=== PATIENT | female | born 1940 | race Caucasian/White ===

== ENCOUNTER 2018-12-19 12:00 | Inpatient (IN) | payer MEDICARE, MEDICAID ==
[~2018-12-19] VITALS: Wt 44.0 kg
[2018-12-19] MEDS ORDERED: CALCIUM 600MG+D1 TAB PO (12:21)
[2018-12-19] MEDS ORDERED: COMPLETE MULTI1 TAB PO (12:22)
[2018-12-19] MEDS ORDERED: FLEXERIL 1010 MG/TAB PO (12:23)
[2018-12-19] MEDS ORDERED: ARICEPT ODT5 MG PO (12:24)
[2018-12-19] MEDS ORDERED: FERROUS GL325 MG/TAB PO (12:25)
[2018-12-19] MEDS ORDERED: FOLIC ACID 11 MG/TA1 PO (12:26)
[2018-12-19 12:27] VITALS: BP 107/66; PULSE 71; TEMP 97.1
[2018-12-19] MEDS ORDERED: IPRATROPIUM BROM3 M1 IH (12:27)
[2018-12-19] MEDS ORDERED: LAMICTAL200 MG PO (12:28)
[2018-12-19] MEDS ORDERED: LEXAPRO20 MG PO (12:28)
[2018-12-19] MEDS ORDERED: CLARITIN 1010 MG/TAB PO (12:30)
[2018-12-19] MEDS ORDERED: SINEMET 25/101 UDTAB PO (12:32)
[2018-12-19] MEDS ORDERED: TINACTIN11 TP (12:34)
[2018-12-19] MEDS ORDERED: MAXZIDE-25MG TA1 TAB PO (12:35)
[2018-12-19] MEDS ORDERED: VICKS VAPORUB 41 OIN TOP (12:35)
[2018-12-19] MEDS ORDERED: B-12 500 MCG PO (12:36)
[2018-12-19] MEDS ORDERED: VTAMINC250TA PO (12:37)
[2018-12-19 15:25] LABS: ALANINE AMINOTRANSFERASE < 6 U/L (9-52); ALBUMIN 3.4 gm/dL (3.5-5.0); ALKALINE PHOSPHATASE 101 U/L (50-136); ANION GAP 7 mmol/L (7-16); AST,SGOT 42 U/L (15-37); BILIRUBIN,TOTAL 2.5 mg/dL (0.0-1.0); BLOOD UREA NITROGEN 37 mg/dL (7-17); CALCIUM 8.9 mg/dL (8.4-10.2); CARBON DIOXIDE 30 mmol/L (22-30); CHLORIDE 94 mmol/L (98-107); CREATININE, serum 1.11 mg/dL (0.52-1.25); GLUCOSE 96 mg/dL (74-106); POTASSIUM 3.5 mmol/L (3.4-5.0); SODIUM 131 mmol/L (137-145); TOTAL PROTEIN 5.7 gm/dL (6.4-8.2)
[2018-12-19 15:38] LABS: PROTHROMBIN TIME 11.9 SECONDS (9.7-12.8)
[2018-12-19 16:19] VITALS: BP 110/35; PULSE 75; TEMP 98.1
[2018-12-19 19:20] VITALS: BP 124/60; PULSE 102; TEMP 100.3
[2018-12-19 20:16] VITALS: PULSE 81; TEMP 99.8
--- NOTE | 2018-12-19 20:25 | NUR ---
Pt resting in bed. Assessment complete, denies pain at this time, pt had borderline temperature with evening vitals, this nurse went in and retook temp and pulse, temp <100, pulse not elevated in 80's. Applied cool rag to forehead to keep pt cool. Meplex on pts sacrum- old/healed pressure sore, but a little redenned. Pt will be turns q2h. IVF infusing at 75 mls/hr into right forearm. Pt took evening medications crushed with chocolate pudding. On seizure precautions. Bed alarm on. Call light in reach. Pt had no further needs at this time.
[2018-12-20] VITALS (8 sets, daily range): BP systolic 100–129; BP diastolic 36–60; PULSE 80–113; TEMP 98.2–102.3
--- NOTE | 2018-12-20 00:37 | NUR ---
Pt tachycardic with elevated temp of 101.1. TAI Rutherford notified. Ordered blood cultures and tylenol 650 mg. Tylenol given crushed with applesauce. Cool washcloth applied to pt as well. Pt ate about 1/3 of applesauce, drank water, and is now resting in bed.
--- NOTE | 2018-12-20 04:57 | NUR ---
COMMANDING OFFICER GARAGE told this nurse Sp02 at 85% on room air. This nurse went into assess patient. Put on 2L of oxygen via NC. Pt now at 92% on 2 L.
--- NOTE | 2018-12-20 05:40 | NUR ---
Pt slept most of the night. Spiked fever, was given tylneol, pt now afebrile. Had low Sp02 this morning, put on 2 L oxygern via NC. Pt resting comfortably in bed at this tiem.
[2018-12-20 06:10] LABS: ALBUMIN 3.2 gm/dL (3.5-5.0); BILIRUBIN,DIRECT 0.2 mg/dL (0.0-0.4); BILIRUBIN,TOTAL 1.8 mg/dL (0.0-1.0); CALCIUM 8.3 mg/dL (8.4-10.2); CREATININE, serum 0.98 mg/dL (0.52-1.25); POTASSIUM 3.2 mmol/L (3.4-5.0); TOTAL PROTEIN 5.5 gm/dL (6.4-8.2)
--- NOTE | 2018-12-20 07:23 | NUR ---
REPORT FROM CANDI ARREOLA.
[2018-12-20 08:28] LABS: HEMOGLOBIN 7.9 g/dl (12.5-16.0); MEAN CELL VOLUME 133 fl (80.0-100.0); MEAN CORPUSCULAR HGB CONC 329 g/dl (33.0-37.0); PLATELET COUNT 153 K/mm3 (130-400); RED BLOOD COUNT 0.18 M/mm3 (4.10-5.30)
[2018-12-20 08:33] LABS: MEAN CORPUSCULAR HEMOGLOBIN 439 pg (27.0-31.0)
[2018-12-20 08:34] LABS: HEMATOCRIT 2.4 % (37.0-47.0)
--- NOTE | 2018-12-20 10:05 | NUR ---
pt to CT at this time per bed.
--- NOTE | 2018-12-20 10:08 | NUR ---
PATIENT CONTINUES TO BE CONFUSED. AND TEAM ROUNDED SEE ORDERS.
[2018-12-20 11:28] LABS: COLLECTION METHOD CATHETER
[2018-12-20 11:38] LABS: MUCOUS Present /lpf; PH 5 (5-8); SQUAMOUS EPITHELIAL 0-2 /hpf; URINE APPEARANCE Hazy; URINE BACTERIA None Seen /hpf; URINE BILIRUBIN Negative (NEGATIVE); URINE BLOOD Negative (NEGATIVE); URINE COLOR Yellow; URINE GLUCOSE Negative (NEGATIVE); URINE KETONE Trace (NEGATIVE); URINE LEUKOCYTE ESTERASE Negative (NEGATIVE); URINE NITRATE Negative (NEGATIVE); URINE PROTEIN(semi-quant) Negative (NEGATIVE); URINE UROBILINOGEN Negative (NEGATIVE)
--- NOTE | 2018-12-20 12:32 | NUR ---
HOSPITALIST DECIDED TO CANCEL GI CONSULT.
--- NOTE | 2018-12-20 12:33 | NUR ---
SPOKE WITH DR. HARTLEY ABOUT PT AND CANCEL OF GI CONSULT.
--- NOTE | 2018-12-20 15:49 | NUR ---
PT TO LAB FOR LAB DRAW DIRECT. DR SAHU IN TO SEE PT AND LORRAINE.
[2018-12-20 16:19] LABS: HEMOGLOBIN 8.5 g/dl (12.5-16.0); PLATELET COUNT 171 K/mm3 (130-400)
--- NOTE | 2018-12-20 16:20 | NUR ---
PT RETURNED TO ROOM INCONTINENT OF BOWEL AND BLADDER, PERICARE PROVIDED. MEPILEX TO RIGHT BONY PROMENECE WITH OLD HEALING PRESSURE SORE WITH A PEA SIZED REDDEND AREA INSIDE A 1X2 IN HEALED WOUND. EVEDENCE OF OLD PRESSURE WOUND ON OPPOSIT BUTTOCKS APPROXIMATELY THE SAME SIZE OTHER SIDE.
--- NOTE | 2018-12-20 16:26 | NUR ---
SW and SW student attended clinical rounding and met with patient to discuss discharge planning. Patient lives at [facility]. Student called and they report she is declining in functioning there and is needing 2 assist. Patients PCP is Ju and [place] [facility] DPOA is her niece and we have a copy on the chart. SW will follow PT and OT for recommendations for discharge as patient is weak and needing assistance.
--- NOTE | 2018-12-20 16:31 | NUR ---
CALLED [facility] AND RELAYED MESSAGE FROM LAB THAT BLOOD DRAW WAS NOT USEABLE D/T HEMOLYZATION OF BLOOD.
[2018-12-20 16:32] LABS: BAND 11 % (0-10); BASOPHIL 1 % (0-2); LYMPHOCYTE 34 % (20.0-51.0); NEUTROPHILS 53 % (42.0-75.2); PLATELET ESTIMATE NORMAL (NORMAL)
[2018-12-20 16:50] LABS: ALBUMIN 3.3 gm/dL (3.5-5.0); BILIRUBIN,TOTAL 1.1 mg/dL (0.0-1.0); CALCIUM 8.3 mg/dL (8.4-10.2); CREATININE, serum 0.97 mg/dL (0.52-1.25); TOTAL PROTEIN 5.8 gm/dL (6.4-8.2)
--- NOTE | 2018-12-20 21:45 | NUR ---
Patient in bed, oriented to self. Has fever of 102.3. HS meds given including Tylenol 650mg po at this time. Patient takes med whole, without evidence of difficulty swallowing. Has drank only a few sips of vanilla shake supplement. Remains on seizure precautions with bed rails padded. Is incontinent of urine, matteo cares provided with repositioning to left side. IVF infusing to right forearm site without redness of swelling noted. Receiving SQ Heparin for DVT prophylaxis. Cough is harsh, at times productive yellow. Lungs are diminished bilaterally.
[2018-12-21 04:26] VITALS: BP 114/34; BP 139/50; PULSE 50; PULSE 80; TEMP 97.8; TEMP 98.3
--- NOTE | 2018-12-21 05:00 | NUR ---
Patient has been incontinent of urine this shift. Has been afebrile last 2 VS checks. IVF infusing to right forearm site without redness or swelling. Oxygen at 2L/NC.
[2018-12-21 06:58] LABS: ALBUMIN 2.9 gm/dL (3.5-5.0); BILIRUBIN UNCONJUGATED 0.7 mg/dL (0.0-1.1); BILIRUBIN,DIRECT 0.1 mg/dL (0.0-0.4); BILIRUBIN,TOTAL 0.8 mg/dL (0.0-1.0); CREATININE, serum 0.97 mg/dL (0.52-1.25); POTASSIUM 3.5 mmol/L (3.4-5.0); TOTAL PROTEIN 5.3 gm/dL (6.4-8.2)
[2018-12-21 07:17] LABS: BASO % 0.2 % (0.0-2.0); EOS % 0.4 % (0-4.0); GRAN # 2.9 (1.4-6.5); GRAN % 53.4 % (42.2-75.2); LYMPH % 37.4 % (20.0-51.0); MEAN PLATELET VOLUME 9.2 fl (7.4-10.4); MONO # 0.4 (0.1-0.6); MONO % 7.9 % (1.7-9.3); PLATELET COUNT 155 K/mm3 (130-400)
[2018-12-21 07:21] LABS: HEMOGLOBIN 8.1 g/dl (12.5-16.0)
[2018-12-21 07:29] LABS: MAGNESIUM 2.2 mg/dL (1.6-2.3)
--- NOTE | 2018-12-21 08:00 | NUR ---
PATIENT IS A&O X2. OCCATIONAL FORGETFUL. PATIENT LIVES AT [facility]. TURN Q2H. NOTED OLD, HEALING BRUISE TO BOTTOM. NO SKIN BREAK DOWN OR OPEN AREAS. PATIENT IS INCONTINENT OF BOWL AND BLADDER. PATIENT CLEANED, NEW BREIF INPLACE AND TURNED. PATIENT SITTING UP IN BED. PATIENT WAS REPORTED TO TAKE PILLS WHOLE. PATIENT ALSO CONFIRMS THIS TO BE TRUE. PATIENT APPEARS TO HAVE DIFFICULTY SWALLOWING PILLS, MOD RISK FOR ASPIRATION. HOB AT 45 DEGREES. A&P LUNG MUSE NOTED FC WITH DEMINISHED BASES. PATIENT BEING TREATED FOR PNEUMONIA, SEE ORDERS. PATIENT IS THIN, WEAK, PALE AND SLIGHTLY WARM TO TOUCH. TEMP WAS 99.2. PATIENT HAS LOTS OF COVERS ON. SOME REMOVED AND ROOM TEMP TURNED DOWN A LITTLE. PT/OT ORDERED. PATIENT HAS HX OF SEIZURES, PRECAUTIONS INPLACE. BLOOD CULTURES PENDING. HEAD TO TOE ASSESSMENT COMPLETE. NO C/O N/V. IV FLUIDS INFUSING VIA PUMP INTO RIGHT FORARM. PATIENT RESTING COMFORTABLY. NO OTHER NEEDS. CALL LIGHT IN REACH. BED ALARM ON.
[2018-12-21 08:02] VITALS: BP 129/39; PULSE 84; TEMP 99.2
--- NOTE | 2018-12-21 11:26 | NUR ---
Initial visit; Patient and her niece thanked Water Plant Maintenance Mechanic for offering encouragement and prayer.
[2018-12-21 12:07] VITALS: BP 122/48; PULSE 104; TEMP 99.9
--- NOTE | 2018-12-21 15:28 | NUR ---
ANDREA called [place] and talked with Isaac Busby. He asked for a clinical update and PT/OT so he can talk with his team to see if patients needs can be met there or if she will needs jail prior to returning vs LTC. ANDREA faxed update. Isaac Busby P# [phone] ex [phone] F# [phone]
[2018-12-21 17:06] VITALS: BP 136/49; PULSE 109; TEMP 100.3
[2018-12-21 19:47] VITALS: BP 129/51; PULSE 67; TEMP 101.3
--- NOTE | 2018-12-21 21:30 | NUR ---
Patient in bed, incontinent of urine. Tiera cares given. HS meds given in applesauce, patient takes one a time and swallows without choking. Able to get patient to take the orange juice with the potassium in it with much encouragement. Patient oriented to self. IVF to right inner forearm infusing without redness or swelling. Medicated with Tylenol 650mg for temp 101.3. Has oxygen on at 2L/nc. Has moist productive cough, patient swallows instead of expectorates. Repositioned to left side. Rails padded for seizure precautions.
--- NOTE | 2018-12-21 22:30 | NUR ---
IV site to right inner forearm leaking. New IV started to left FA with 20g insyte on first attempt. IVF infusing at 75cc/hr without redness or swelling.
[2018-12-22] VITALS (7 sets, daily range): BP systolic 117–152; BP diastolic 48–78; PULSE 87–109; TEMP 97.8–100.3
--- NOTE | 2018-12-22 05:30 | NUR ---
Patient in bed, incontinent of urine, matteo cares provided. [place] thick water provided, takes few sips only at this time.
[2018-12-22 07:04] LABS: BASO % 0.9 % (0.0-2.0); EOS # 0.1 (0.0-0.7); EOS % 1.3 % (0-4.0); GRAN % 42.4 % (42.2-75.2); LYMPH # 2.2 (1.2-3.4); LYMPH % 48.5 % (20.0-51.0); MEAN PLATELET VOLUME 9.1 fl (7.4-10.4); MONO # 0.3 (0.1-0.6); MONO % 6.7 % (1.7-9.3); PLATELET COUNT 170 K/mm3 (130-400)
[2018-12-22 07:12] LABS: ALBUMIN 2.8 gm/dL (3.5-5.0); BILIRUBIN,TOTAL 0.7 mg/dL (0.0-1.0); CALCIUM 8.1 mg/dL (8.4-10.2); CREATININE, serum 0.92 mg/dL (0.52-1.25); POTASSIUM 3.6 mmol/L (3.4-5.0); TOTAL PROTEIN 5.1 gm/dL (6.4-8.2)
[2018-12-22 07:56] LABS: HEMOGLOBIN 8.5 g/dl (12.5-16.0)
--- NOTE | 2018-12-22 08:47 | NUR ---
Patient in bed resting; alert and oriented to self. Denies pain at this time. Assisted with eating, medications given crushed in apple juice. Encourageing fluids and assisted patient. Denies further needs at this time.
--- NOTE | 2018-12-22 13:26 | NUR ---
ANDREA talked with Ed at [facility]. he reports they will be able to accept her back at her current level of functioning. ANDREA will continue to follow and keep [place] updated.
--- NOTE | 2018-12-22 18:11 | NUR ---
Patient in bed resting. Denies pain at this time. Encouraged fluid intake through the day. Grand-daughter was by earlier to visit, states patients daughter will be by tomorrow. IV fluids continue to infuse per orders via pump. Denies further needs at this time.
--- NOTE | 2018-12-22 22:00 | NUR ---
Shift assessment complete. Patient oriented to self only. Laying in bed, awake. Denies pain. States, she wants to lay down and go to sleep. Scheduled medications given. Will continue to monitor.
[2018-12-23 03:32] VITALS: BP 127/50; PULSE 98; TEMP 100
--- NOTE | 2018-12-23 06:09 | NUR ---
Temp 100.0. Prn tylenol given. Will reassess in one hour. Patient denies pain.
[2018-12-23 07:39] LABS: CALCIUM 7.8 mg/dL (8.4-10.2); CREATININE, serum 0.86 mg/dL (0.52-1.25); POTASSIUM 3.9 mmol/L (3.4-5.0)
[2018-12-23 08:00] LABS: BASO % 0.2 % (0.0-2.0); EOS # 0.1 (0.0-0.7); EOS % 1.6 % (0-4.0); GRAN # 1.3 (1.4-6.5); GRAN % 29.6 % (42.2-75.2); LYMPH # 2.7 (1.2-3.4); LYMPH % 61.9 % (20.0-51.0); MEAN PLATELET VOLUME 9.1 fl (7.4-10.4); MONO # 0.3 (0.1-0.6); MONO % 6.2 % (1.7-9.3); PLATELET COUNT 178 K/mm3 (130-400)
--- NOTE | 2018-12-23 08:00 | NUR ---
PATIENT DROWSY AND RESTING IN BED. PATIENT AROUSES EASILY. PATIENT IS A&O. VSS. BOWEL SOUNDS ACTIVE ALL FOUR QUADRANTS. PATIENT TOLERATING FOOD & LIQUIDS WITHOUT COMPLAINTS OF N/V. ABDOMINAL LAP SITES X4 MERLYN WITH EDGES WELL APPROXIMATED. RIGHT-SIDED ABDOMINAL DEEDEE SITE DRESSED WITH GAUZE & HYPAFIX AND IS CD&I. DEEDEE DRAIN TO BULB SUCTION WITH SMALL AMOUNTS OF BLOODY DRAINAGE PRESENT IN BULB. POSITIVE PEDAL PULSES EQUAL BILATERALLY. SCD'S TO BLE. RIGHT FOREARM TO INT. CALL LIGHT WITHIN REACH. BREAKFAST TRAY ORDERED. NO OTHER NEEDS AT THIS TIME.
[2018-12-23 09:16] VITALS: BP 126/54; PULSE 93; TEMP 97.1
[2018-12-23 10:57] VITALS: BP 132/56; PULSE 90; TEMP 97.5
--- NOTE | 2018-12-23 13:41 | NUR ---
ANDREA met with patient's DPOA, Kita, per request. Kita reports she would prefer pateitn not return to [place] and she would like her to go to [facility] in [place]. ANDREA reported she can contact [facility] and fax a referral. ANDREA spoke with a nurse from [facility] and she reports the test center administrator is gone until Tuesday but SW can fax a referral and the administraor will contact ANDREA on Tuesday. ANDREA faxed referral.
--- NOTE | 2018-12-23 13:50 | NUR ---
PATIENT'S RIGHT AC INT DISCONTINUED PER PENDING DISCHARGE. PATIENT'S RIGHT-SIDED ABDOMINAL DEEDEE DRAIN PULLED. PATIENT TOLERATED WELL. GAUZE & TEGADERM IN PLACE OVER DEEDEE INCISION SITE. DISCHARGE INSTRUCTIONS REVIEWED WITH PATIENT. ALL QUESTIONS ANSWERED. PATIENT PERSONAL BELONGINGS GATHERED. PATIENT AMBULATED WITH SURGICAL STAFF TO PERSONAL VEHICLE. PATIENT DISCHARGED.
[2018-12-23 17:47] VITALS: BP 133/63; PULSE 91; TEMP 98.1
--- NOTE | 2018-12-23 18:52 | NUR ---
Report received from Caroline ARREOLA. Pt sleeping,but easily arousable. No needs noted at this time.
--- NOTE | 2018-12-23 19:32 | NUR ---
END OF SHIFT NOTE. PATIENT IS DROWSY, LETHARGIC AND HAS SLEPT THROUGHOUT THE ENTIRE SHIFT WITH THE EXCEPTION OF INCONTINENT CHANGES AND NEURO CHECKS. PATIENT IS ORIENTED TO NAME ONLY. PATIENT WILL NOT STATE HER NAME, BUT RESPONDS TO NAME WHEN SPOKEN. TACHYCARDIA NOTED, OTHERWISE VSS DURING SHIFT. PATIENT REMAINED AFEBRILE DURING THE DAY. ALL LUNG MUSE COARSE UPON AUSCULTATION. LUNG BASES DIMINISHED BILATERALLY. PATIENT IS REFUSING ALL MEDICATIONS, FOOD AND LIQUIDS. PATIENT AGGRESSIVE AND SLIGHTLY COMBATIVE WHEN BEING REPOSITIONED AND CHANGED. PATIENT REFUSES TO COOPERATE WITH ALL NEURO CHECKS. DR. TEIXEIRA IS AWARE OF PATIENT BEING NON-COOPERATIVE. PATIENT'S NEICE AND DPOA STATES THAT THE PATIENT'S BEHAVIOR TODAY IS NOT ABNORMAL FOR HER, HOWEVER IT IS A CHANGE FROM THE PATIENT'S BEHAVIOR OVER THE LAST COUPLE DAYS. REPORT GIVEN TO MAXWELL MORALES.
--- NOTE | 2018-12-23 20:10 | NUR ---
Pt resting in bed. Responds to name, but unable to tell me her name or answer questions appropriately. Neuro check within normal limits otherwise. States that she has "some pain" while I listen to her lungs, but says it resolved quickly. Bilateral bases diminished to ausucltation. SpO2 is 92% on RA. Pt was noncompliant on day shift, but when asked if she would take her nighttime medications, she responded with "well, I guess". IVF infusing to LFA IV.
[2018-12-23 20:12] VITALS: BP 131/60; PULSE 96; TEMP 99.2
--- NOTE | 2018-12-23 21:51 | NUR ---
Pt took night time medications crushed with applesauce without difficulty. Pt also drank water with meds.
[2018-12-23 23:58] VITALS: BP 130/54; PULSE 91; TEMP 98
[2018-12-24 03:45] VITALS: BP 136/56; PULSE 78; TEMP 99.3
--- NOTE | 2018-12-24 05:45 | NUR ---
Pt sleeping, but easily arousable. No distress noted. Pt rested throughout the night. Neurological assessment unchanged. Pt has been cooperative with medication administration and assessments.
--- NOTE | 2018-12-24 07:50 | NUR ---
PATIENT A&O. VSS. BOWEL SOUNDS HYPOACTIVE ALL FOUR QUADRANTS. 'PATIENT STATES THAT SHE FEELS QUEEZY,' BUT DENIES VOMITING. POSITIVE PEDAL PULSES EQUAL BILATERALLY. SHIRLEY HOSE TO LLE. SCD'S TO BLE. AT BEDSIDE. OPERATIVE FLUIDS TO GRAVITY TUBING INFUSING TO RIGHT AC IV. PATIENT TAKEN TO PERIOP VIA BED BY MAXWELL KEY. WILL WAIT FOR RETURN TO ROOM 344 POST-OP.
[2018-12-24 08:14] LABS: CALCIUM 7.9 mg/dL (8.4-10.2); CREATININE, serum 0.86 mg/dL (0.52-1.25); POTASSIUM 4.1 mmol/L (3.4-5.0)
[2018-12-24 08:48] LABS: BASO % 0.4 % (0.0-2.0); EOS # 0.1 (0.0-0.7); EOS % 2.3 % (0-4.0); GRAN # 1.9 (1.4-6.5); GRAN % 36.7 % (42.2-75.2); LYMPH # 2.8 (1.2-3.4); LYMPH % 54.2 % (20.0-51.0); MONO # 0.3 (0.1-0.6); MONO % 5.4 % (1.7-9.3); PLATELET COUNT 202 K/mm3 (130-400)
[2018-12-24 09:16] VITALS: BP 151/69; PULSE 80; TEMP 97.4
[2018-12-24 12:32] VITALS: BP 156/73; PULSE 86; TEMP 97.9
[2018-12-24 16:17] VITALS: BP 114/91; PULSE 76; TEMP 98.4
--- NOTE | 2018-12-24 19:00 | NUR ---
END OF SHIFT NOTE. PATIENT AWAKE AND ALERT THIS MORNING. PATIENT ABLE TO STATE HER FIRST AND LAST NAME, , MONTH, YEAR AND THAT SHE IS IN THE HOSPITAL. PATIENT STATES THAT SHE DOES NOT KNOW WHAT TOWN SHE IS IN. PATIENT RIGHT UPPER LUNG LOBE COARSE UPON AUSCULATATION. LEFT UPPER LUNG LOBE CLEAR. LUNG BASES DIMINISHED BILATERALLY. LEFT HEEL REDDENED. BOOTIES APPILED TO BILATERAL FEET AND FLOATED ON A PILLOW. IV FLUIDS INFUSING TO LEFT FOREARM IV VIA PUMP. PATIENT REFUSED BREAKFAST. PATIENT TOOK ESSENTIAL AM MEDICATIONS WITH A COUPLE BITES OF PUDDING. PATIENT HAD A VANILLA SHAKE WITH ENSURE FOR LUNCH. PATIENT OTHERWISE REFUSED FOOD. PATIENT ORDERED ANOTHER SHAKE FOR DINNER. PATIENT PLEASANT AND BEHAVIOR HAS BEEN COMPLETELY OPPOSITE FROM DAY SHIFT ON TUESDAY. REPORT GIVEN TO MAXWELL DEAN.
[2018-12-24 19:39] VITALS: BP 146/67; PULSE 75; TEMP 98.8
--- NOTE | 2018-12-24 21:00 | NUR ---
Patient more alert this shift, is oriented to self, day and time. Takes HS meds with entire shake and will take water when offered. Incontinent of large soft stool, as well as urine. IVF infusing to left forearm at 75cc/hr without redness or swelling. Has bilateral heel protectors on. Lungs diminished bilaterally and cough is less harsh and is non productive. Afebrile so far this shift. Remains on seizure precautions.
[2018-12-24 23:52] VITALS: TEMP 98.7
[2018-12-25 04:30] VITALS: BP 127/54; PULSE 85; TEMP 98.4
--- NOTE | 2018-12-25 06:00 | NUR ---
Patient has been more alert and oriented this shift. Has been incontinent of urine and matteo cares given x3 this shift. Takes water when offered. IVF continue to left forearm without redness or swelling.
[2018-12-25 07:02] LABS: CALCIUM 7.8 mg/dL (8.4-10.2); CREATININE, serum 0.79 mg/dL (0.52-1.25); POTASSIUM 3.6 mmol/L (3.4-5.0)
[2018-12-25 08:00] LABS: BASO % 0.3 % (0.0-2.0); EOS # 0.2 (0.0-0.7); EOS % 2.5 % (0-4.0); GRAN # 1.9 (1.4-6.5); LYMPH # 3.4 (1.2-3.4); LYMPH % 52.7 % (20.0-51.0); MEAN PLATELET VOLUME 8.7 fl (7.4-10.4); MONO # 0.9 (0.1-0.6); MONO % 13.3 % (1.7-9.3); PLATELET COUNT 243 K/mm3 (130-400)
[2018-12-25 08:14] LABS: HEMOGLOBIN 8.4 g/dl (12.5-16.0)
[2018-12-25 08:39] VITALS: BP 153/72; PULSE 74; TEMP 98.3
[2018-12-25 08:42] LABS: ALBUMIN 2.6 gm/dL (3.5-5.0); BILIRUBIN UNCONJUGATED 0.5 mg/dL (0.0-1.1); BILIRUBIN,DIRECT 0.1 mg/dL (0.0-0.4); BILIRUBIN,TOTAL 0.6 mg/dL (0.0-1.0); TOTAL PROTEIN 4.9 gm/dL (6.4-8.2)
[2018-12-25] MEDS ORDERED: AMOXICILLIN 8751 TAB PO (09:26)
[2018-12-25] MEDS ORDERED: NORVASC 5MG5 MG/TAB PO (09:28)
[2018-12-25] MEDS ORDERED: TYLENOL 325MG325 MG PO (09:28)
[2018-12-25] MEDS ORDERED: K-TAB20 PO (09:31)
[2018-12-25 11:20] VITALS: BP 138/59; PULSE 90; TEMP 98.3
[2018-12-25 11:44] LABS: KAPPA FREE LIGHT CHAIN-SERUM 6.38 mg/dL (()); LAMDA FREE LIGHT CHAIN SERUM 2.11 mg/dL (())
[2018-12-25 13:24] LABS: HEMOGLOBIN A1 97.4 % (94.5-99.5); HEMOGLOBIN A2 2.6 % (0.0-3.5); HEMOGLOBIN F <2.0 % (0.0-2.0)
--- NOTE | 2018-12-25 13:57 | NUR ---
ANDREA called and spoke with damon lamb. Screen was sent to city supervisor and they are awaiting her decision. Will call when they know.
--- NOTE | 2018-12-25 15:31 | NUR ---
ANDREA called Ed at [facility] to inform him of discharge. He reports they use [facility]. ANDREA called patients DPOA to provide choices for HH. She would like to use the one that [facility] uses. ANDREA called and faxed referral. Patient is dc back to [facility] with PT/OT/ST/SN home health provided by [facility]. ANDREA presented IM to patients DPOA verbally via phone. She is agreeable and a copy was placed in discharge folder. Original in the chart. ANDREA to fax dc to [facility] and [facility]
[2018-12-25 15:49] VITALS: BP 138/59; PULSE 90; TEMP 98.3
[2018-12-25 15:50] VITALS: BP 157/62; PULSE 86; TEMP 97.6
--- NOTE | 2018-12-25 17:17 | NUR ---
Discharge instructions sent with patient's nephew. All belongings sent with patient. Patient assisted to personal vehicle with patient's nephew and 2 staff members.
[2018-12-26 10:26] LABS: CRYOFIBRINOGEN XXX; CRYOGLOBULIN XXX
--- NOTE | 2018-12-26 10:38 | NUR ---
ANDREA spoke with Shelli, medical records at [facility], about patients dc back there yesterday. ANDREA explained that she spoke with Ed and that he had received a clinical update and reported they could take her back at her functioning level. ANDREA also explained patients Medicaid doesnt pay for LTC and that she was denied by [facility] due to that. Shelli will get with her caseworker to work on switching up patients medicaid so when needed she can move to a LTC facility.
== END 2018-12-25 17:20 | disposition home health service (06) | DRG 178 ==
LOC: SURG 12:00
PROVIDERS: Internal Medicine Medical Oncology; Nurse Practitioner Family; Physician Assistant; Surgery; ADMIT Hospitalist
DX: J69.0 Pneumonitis due to inhalation of food and vomit (principal); E44.0 Moderate protein-calorie malnutrition; D68.4 Acquired coagulation factor deficiency; J90 Pleural effusion, not elsewhere classified; J98.11 Atelectasis; Z66 Do not resuscitate; J09.X1 Influenza due to identified novel influenza A virus with pneumonia; K80.20 Calculus of gallbladder without cholecystitis without obstruction; E86.0 Dehydration; I10 Essential (primary) hypertension; G20 Parkinson's disease; E87.6 Hypokalemia; F02.80 Dementia in other diseases classified elsewhere, unspecified severity, without behavioral disturbance, psychotic disturbance, mood disturbance, and anxiety; G40.909 Epilepsy, unspecified, not intractable, without status epilepticus; E80.6 Other disorders of bilirubin metabolism; D73.1 Hypersplenism; D64.9 Anemia, unspecified; F32.9 Major depressive disorder, single episode, unspecified
CPT/HCPCS: 99222-AI; 99231-AI; 99232-AI; 99233-AI; 99239; A4216; J0456; J0696; J1644; J2543; J3480; J7030; J7050; Q9967